=== PATIENT | male | born 1950 | race Caucasian/White ===

== ENCOUNTER 2017-02-24 13:39 | Inpatient (IN) | payer MEDICARE ==
[2017-02-24] VITALS (7 sets, daily range): BP systolic 128–165; BP diastolic 75–86; PULSE 50–55; RESP 15–20; O2SAT 95–97
[~2017-02-24] VITALS: Ht 179.1 cm; Wt 112.8 kg
[~2017-02-24 13:39] MED LIST: ASPI-973 PO; ATEN25TA PO; FELO5TAB4 PO; FLUO20CA25 PO; FLUT16SP NS; KLO5T PO; LOVA40TA PO; METF-496 PO; TAMS0.4C29 PO
--- NOTE | 2017-02-24 13:53 | ED.REPORT ---
HPI-Neurologic Deficit Date of Service Feb 24, 2017 ED Provider: Laura Ballard MD Patient is a 66 year old male with a history of diabetes, aortic root aneurysm, hypertension, and multiple other concerns presenting to the ED complaining of numbness in his left arm radiating to his left shoulder and hand onset 12:00 today. The patient admits to having weakness in his left arm and hand, a "fuzzy feeling" on the left side of his face, difficulty talking, feeling mentally "hazy" and a headache. He denies having leg or face numbness, trouble walking, vision problems, dizziness, nausea, chest pain or abdominal pain. The patient reports that the weakness in his arm is improving and he no longer has a headache or a "hazy" feeling. The patient took three regular aspirin for his symptoms prior to arrival, which seemed to help. Per the patient's , the patient has experienced numbness in his arm similar to this six years ago, but the symptoms were not as severe. However he has not yet fully regained sensation in his left arm from that event. Nursing Notes Stated Complaint: LEFT ARM NUMB,HEADACHE Chief Complaint: Neuro Symptoms/ Deficits Nursing Notes Reviewed: Yes Allergies: Coded Allergies: ARB-Angiotensin Receptor Antagonist (Verified Allergy, Severe, Anaphylaxis , 02/24/17) hydrochlorothiazide (Verified Allergy, Severe, Anaphylaxis, 02/24/17) losartan (Verified Allergy, Severe, LARYNGEAL SWELLING, 02/24/17) lisinopril (Verified Allergy, Intermediate, myalgia, 02/24/17) simvastatin (Verified Adverse Reaction, Intermediate, myalgias, 02/24/17) Scheduled Aspirin (Aspirin) 81 Mg Tablet 81 MG PO DAILY Atenolol (Atenolol) 25 Mg Tablet 25 MG PO QPM Felodipine ER (Felodipine ER) 5 Mg Tab.er.24h 5 MG PO QAM Fluoxetine (Fluoxetine) 20 Mg Capsule 20 MG PO DAILY Fluticasone Propionate (Fluticasone Propionate Nasal) 16 Gm [place].susp 1 SPRAY NS DAILY Lovastatin (Lovastatin) 40 Mg Tablet 40 MG PO HS Metformin ER (Metformin ER) 1,000 Mg Tablet 1,000 MG PO BID morning and evening meals Tamsulosin ER (Tamsulosin ER) 0.4 Mg Cap.er.24h 0.4 MG PO DAILY Terbinafine (Terbinafine) 250 Mg Tablet 250 MG PO DAILY Scheduled PRN Clonazepam (Clonazepam) 0.5 Mg Tablet 0.5 MG PO BID PRN PRN For Anxiety Lorazepam (Lorazepam) 1 Mg Tablet 1 MG PO TID PRN PRN For Anxiety General Time Seen by Provider: 13:42 Chief Complaint Weakness arm... (Left) Hx Obtained From: Patient, Spouse Arrived By: Walk-in Sudden in Onset?: Yes Onset Occurred: 1 - 4 hours ago Symptom Duration: Since onset Progression Since Onset: Gradually improving Recent Healthcare: No recent hospitalization, Recent doctor visit Similar Sx Previous: Yes Past Medical History Past Medical History Notes: PCP: Dr. Munoz Past Medical History Sleep apnea ENT problems sinus problems cardiac symptoms hypertension gastrointestinal disorders endocrine disorders anxiety Reports: Diabetes mellitus, Hypertension, Stroke Reports: Depression Past Surgical History UVULA Reports: Appendectomy Smoking History Never Smoker Social History Alcohol Use: Denies alcohol use Drug Use: Denies drug use Ambulatory Status Independent Review of Systems Review of Systems Note: "fuzzy feeling" on left side of face feels "hazy" mentally denies issues walking Eyes: Denies: Visual loss left, Visual loss right Respiratory: Denies: Non-productive cough, Shortness of breath Cardiovascular: Denies: Chest pain GI: Denies: Abdominal pain, Nausea Musculoskeletal: Denies: Back pain Skin: Denies Rash Neurologic: Reports: Headache, Numbness (left arm, shoulder and hand), Weakness (left arm), Denies: Dizziness, Problem walking, Vision change Complete sys rev & neg: except as marked. Physical Exam Initial Vital Signs Vital Signs (First) Date Time Temp Pulse Resp B/P Pulse Ox O2 Delivery O2 Flow Rate FiO2 02/24/17 13:58 36.9 55 18 146/75 97 Room Air Initial VS: Reviewed, Vital signs abnormal General/Constitutional: Awake, Alert, No acute distress Head / Eyes: Atraumatic, Normocephalic, PERRL, EOMI Respiratory / Chest: Atraumatic, Breath sounds NL, Breath sounds = bilat, No respiratory distress Cardiovascular: Heart rate NL, Regular rhythm, Heart sounds NL no carotid bruit Neurologic: Oriented X3, Speech NL, No motor deficits, No sensory deficits, CN II - XII intact Slightly decreased sensation to light touch on left side ENT: Atraumatic, Airway patent, Mucous membranes moist Neck: Atraumatic, Supple, Full range of motion Abdomen: Atraumatic, Soft, Non-tender Back: Atraumatic, Full range of motion Upper Extremity / MS: Atraumatic, Full range of motion Lower Extremity / Pelvis / MS: Atraumatic, Full range of motion Skin: Atraumatic, Color NL, No rash, Warm, Dry Psychiatric: Affect NL, Mood NL Interpretation & Diagnostics Interpretation & Diagnostics: Head/Neck CTA with Brain Perfusion: IMPRESSION: 1. No hemodynamically significant lesions of the central intracranial vasculature. 2. No hemodynamically significant lesions of the extracranial neck vasculature. Dictated by: Umesh Anand M.D. on 02/24/2017 at 15:48 Approved by: Umesh Anand M.D. on 02/24/2017 at 15:59 Lab Results Interpretation Result Diagram: 02/24/17 1410 02/24/17 1410 Test 02/24/17 14:10 02/24/17 14:15 White Blood Count 7.3th/mm3 (3.8-10.1) Red Blood Count 4.29mil/mm3 (4.40-5.80) Hemoglobin 14.1g/dL (13.8-17.2) Hematocrit 41.4% (41.0-50.0) Mean Corpuscular Volume 96.5fL (81-100) Mean Corpuscular Hemoglobin 32.9pg (27.0-35.0) Mean Corpuscular Hemoglobin Concent 34.1% (32.0-37.0) Red Cell Distribution Width 13.3% (12.3-15.4) Platelet Count 306bil/L (150-400) Neutrophils (%) (Auto) 66.7% (40-74) Lymphocytes (%) (Auto) 21.3% (14-46) Monocytes (%) (Auto) 9.2% (4-12) Eosinophils (%) (Auto) 1.5% (0-5) Basophils (%) (Auto) 0.5% (0-3) Prothrombin Time 10.3sec (8.1-12.5) Prothromb Time International Ratio 0.96ratio Activated Partial Thromboplast Time 25.7sec (22.8-33.0) Sodium Level 140mEq/L (134-144) Potassium Level 4.2mEq/L (3.5-5.2) Chloride Level 101mEq/L (97-108) Carbon Dioxide Level 21mmol/L (18-29) Blood Urea Nitrogen 17mg/dL (8-27) Creatinine 1.15mg/dL (0.76-1.27) Estimat Glomerular Filtration Rate 68mL/min (>59) Glucose Level 126mg/dL (60-99) Calcium Level 9.6mg/dL (8.5-10.1) Total Bilirubin 0.3mg/dL (0.0-1.2) Aspartate Amino Transf (AST/SGOT) 14U/L (0-50) Alanine Aminotransferase (ALT/SGPT) 13U/L (0-44) Alkaline Phosphatase 74U/L (25-160) Troponin T < 0.010ug/L (0.0-0.011) Total Protein 6.6g/dL (6.4-8.4) Albumin 4.0g/dL (3.4-5.0) Hold [place] Top Tube Received (Received) Urine Color Yellow (YELLOW) Urine Appearance Clear (CLEAR,HAZY) Urine pH 5.0 (5.0-8.0) Urine Specific [place] 1.025 (1.003-1.035) Urine Protein Negativemg/dL (NEG,TRACE) Urine Glucose (UA) Negativemg/dL (NEGATIVE) Urine Ketones Negativemg/dL (NEGATIVE) Urine Occult Blood Negative (NEGATIVE) Urine Nitrite Negative (NEGATIVE) Urine Bilirubin Negative (NEGATIVE) Urine Urobilinogen Normalmg/dL (NORMAL) Urine Leukocyte Esterase Negative (NEGATIVE) Urine RBC 0-2/hpf (0-2) Urine WBC 0-5/hpf (0-5) Urine Epithelial Cells Moderate/hpf (NONE-MOD) Urine Crystals None seen (NONE SEEN) Urine Bacteria None/hpf (NONE-FEW) Urine Hyaline Casts None/lpf (NONE) Urine Granular Casts None seen (NONE SEEN) Urine Waxy Casts None seen (NONE SEEN) Urine Red Blood Cell Casts None seen (NONE SEEN) Urine White Blood Cell Casts None seen (NONE SEEN) Urine Mucus None seen (None Seen) Urine Trichomonas None seen (NONE SEEN) Urine Yeast None (NONE SEEN) Urinalysis Comment None Urine Culture Reflexed Not indicated ECG Interpretation Interpreted by: ED physician Normal ECG Interpretation: Normal rate (53), Normal sinus rhythm CT Head Interpretation IMPRESSION: 1. No acute intracranial abnormalities. Several nonacute bilateral cerebellar hemisphere lacunar infarcts. 2. New patchy asymmetric left mastoid air cell fluid may suggest mastoiditis. Right greater than left dependent maxillary sinus mucosal thickening is also present. Dictated by: Umesh Anand M.D. on 02/24/2017 at 14:08 Approved by: Umesh Anand M.D. on 02/24/2017 at 14:12 Interpretation / Wet Read by: Interpret - Radiologist Re-Eval/Medical Decision Med Decision/Clinical Course The patient presents with neurologic symptoms were resolving upon arrival. His evaluation here did not reveal any abnormalities and the patient had complete resolution of his symptoms. He did have a neurologic evaluation more than 6 years ago and is only on a baby aspirin. Source of Hx: Old records Re-Evaluation/Progress #1: Time of Eval: 13:55 Patient Status: Condition improved Re-Evaluation/Progress Note: Rechecked patient who appears to have improved. The patient states that his arm weakness is almost resolved. More information was obtained. Re-Evaluation/Progress #2: Time of Eval: 16:19 Patient Status: Condition improved Re-Evaluation/Progress Note: Rechecked patient who appears to have improved. Discussed plan for admission. The patient understands and agrees to the plan. All questions were addressed. Consultation : Referral / Consult Name: Misael Smith Consulted With: Hospitalist Call Returned at: 16:55 Hair Dryer: Agrees with eval, Agrees with plan, Accepts admit Note: Consulted with hospitalist, Dr. Smith about the patient's case who agrees with the diagnosis and agrees to admit the patient. Counseled Regarding: Diagnosis, Lab results, Need for admission Discharge & Departure Impression: Primary Impression: Brain TIA Transient cerebral ischemia type: unspecified Qualified Code: G45.9 - Transient cerebral ischemic attack, unspecified Disposition: ADMITTED TO HOSPITAL Discharge Condition All VS Reviewed: Yes Condition: Stable Referrals: Marcial Crandall MD (PCP) Scribe Attestation Portions of this note were transcribed by Kamala Starks and [place]. I, Dr. Ballard personally performed the history, physical exam and medical decision- making; I reviewed and confirmed the accuracy of the information in the transcribed note. Signed by: Kamala Starks and ChelIra Villegas, 02/24/17 and 1717. copies to: Marcial Crandall MD, Jena M MD Feb 24, 2017 13:53 Ammy Starks Feb 24, 2017 15:21 [place] Feb 24, 2017 16:16 Laura Ballard MD Feb 24, 2017 13:53 Ammy Starks Feb 24, 2017 15:21 [place] Feb 24, 2017 16:16
--- NOTE | 2017-02-24 14:13 | DRSVH ---
PROCEDURE: CT BRAIN WITHOUT CONTRAST ([id number]) INDICATIONS: 66-year-old male with left arm numbness and headaches. TECHNIQUE: Noncontrast 4.5 mm thick angled axial sections acquired from the foramen magnum to the vertex, with c oronal reformats. COMPARISON: [facility] , CT, BRAIN W/O CONTRAST, 02/11/2011, 12:19. FINDINGS: Image quality: Excellent. CSF spaces: Basal cisterns are patent. No extra-axial fluid collections. Ventricles are normal in size and shape. Brain: No midline shift. No intracranial masses or hemorrhage. Blackwell-white matter interface is norm al. Several nonacute bilateral cerebellar hemisphere lacunar infarcts are again noted. There is pat margo intracranial internal carotid artery atherosclerosis. Skull and face: Calvarium and visualized facial bones are intact, without suspicious lesions. Sinuses: There is bibasilar maxillary sinus mucosal thickening, as well as new patchy asymmetric lef t mastoid air cell fluid. IMPRESSION: 1. No acute intracranial abnormalities. Several nonacute bilateral cerebellar hemisphere lacunar in farcts. 2. New patchy asymmetric left mastoid air cell fluid may suggest mastoiditis. Right greater than le ft dependent maxillary sinus mucosal thickening is also present. Dictated by: Umesh Anand M.D. on 02/24/2017 at 14:08 Approved by: Umesh Anand M.D. on 02/24/2017 at 14:12
[2017-02-24] MEDS ORDERED: LORA1TAB PO (14:28)
[2017-02-24] MEDS ORDERED: TERB250T11 PO (14:28)
[2017-02-24 14:32] LABS: BASOPHILS % (AUTO) 0.5 % (0-3); EOSINOPHILS % (AUTO) 1.5 % (0-5); MONOCYTES % (AUTO) 9.2 % (4-12); Mean Corpuscular Hemoglobin 32.9 pg (27.0-35.0); Mean Corpuscular Volume 96.5 fL (81-100); NEUTROPHILS % (AUTO) 66.7 % (40-74); Platelet Count 306 bil/L (150-400)
[2017-02-24 14:33] LABS: APPEARANCE,URINE CLEAR (CLEAR,HAZY); COLOR,URINE YELLOW (YELLOW); OCCULT BLOOD,URINE NEGATIVE (NEGATIVE); UROBILINOGEN,URINE NORMAL (NORMAL)
[2017-02-24 14:50] LABS: INR 0.96 ratio
[2017-02-24 14:56] LABS: TROPONIN T < 0.010 ug/L (0.0-0.011)
--- NOTE | 2017-02-24 15:10 | NUR ---
Evaluation completed. Please go to "Notes" then click on "Assessments and Notes" (bottom left corner of screen). Then select appropriate discipline tab on top of screen.
--- NOTE | 2017-02-24 16:00 | DRSVH ---
PROCEDURE: CT ANGIO HEAD AND NECK (P) INDICATIONS: 66-year-old male with left arm and facial numbness. TECHNIQUE: After the administration of intravenous contrast, 1 mm thick sections acquired from the aortic arch t hrough the [place]. Post-contrast 4.5 mm thick sections then re-acquired from the foramen m agnum to the vertex. 3-dimensional qjngulb-eydasyeij-yeajconidj (MIP) and/or volume rendering reform ats were acquired of the central intracranial vasculature and neck separately. For radiation dose re duction, the following was used: automated exposure control, adjustment of mA and/or kV according to patient size. COMPARISON: [facility], CT, CT BRAIN WO CON, 02/24/2017, 14:03. FINDINGS: Image quality: Excellent. BRAIN: CSF spaces: Ventricles are normal in size and shape. Basal cisterns are patent. No extra-axial flu id collections. Brain: No midline shift. No intracranial bleeds or masses. Blackwell-white matter interface appears int act. Skull and face: Calvarium and facial bones appear intact, without suspicious lesions. Orbits appear normal. Sinuses: Sinuses and mastoids are clear. HEAD CT ANGIOGRAPHY: Anterior circulation: Intracranial internal carotid arteries are normal in size and flow. 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 The flow within the middle cerebral arteries is normal and symmetric. The anterior communic ating artery is seen. No aneurysms are seen. Posterior circulation: Visualized portions of the vertebral arteries demonstrate normal caliber, and join to form a normal appearing basilar artery. Flow within the posterior cerebral arteries is norm al and symmetric. No aneurysms are seen. NECK CT ANGIOGRAPHY: Carotid system: There is a bovine aortic arch, with common origin to the brachiocephalic and left co mmon carotid arteries. The origins of the common carotid arteries appear patent. The common carotid arteries demonstrate normal caliber and courses. The bifurcation regions are both widely patent. M inimal bilateral proximal internal carotid artery calcification is present. The internal carotid art eries demonstrate normal calibers and courses. Posterior circulation: The origins of the codominant vertebral arteries both appear widely patent. The more superior extracranial portions of both vertebral arteries also demonstrate normal courses an d calibers. They join to form a normal appearing basilar artery. Soft tissues: Visualized neck soft tissues demonstrate no suspicious abnormalities. Bones: No suspicious bony lesions. Visualized cervical spine appears normally aligned. IMPRESSION: 1. No hemodynamically significant lesions of the central intracranial vasculature. 2. No hemodynamically significant lesions of the extracranial neck vasculature. Dictated by: Umesh Anand M.D. on 02/24/2017 at 15:48 Approved by: Umesh Anand M.D. on 02/24/2017 at 15:59
[2017-02-24] MEDS ORDERED: 0.9% Sodium Chloride 1,000 ML IV SCH (17:00)
[2017-02-24] MEDS ORDERED: Alum-Mag Hydrox-Simeth 30 mL Suspension PO PRN ×2 (17:00→18:15)
[2017-02-24] MEDS ORDERED: Ondansetron 2 mg/mL 2 mL Inj IVPUSH PRN (17:00)
--- NOTE | 2017-02-24 18:05 | NUR ---
Admit MPC from ED A&O pt arrived to [facility] rm [id number] from ED on a stretcher. Pt c/o PETERSON being 12/05. Miguel at bedside. Pt oriented to room and facility. Denies having questions. Admit to be done. MD in room at the moment. Pt appears to be very [place]. Steady gait observed when ambulating to the restroom. Upper rails up, call light in reach. Will continue to monitor.
[2017-02-24] MEDS ORDERED: Polyethylene Glycol (PEG) 17 Gm Powder PO PRN (18:15)
[2017-02-24] MEDS ORDERED: Labetalol 5 mg/mL 4 mL Inj IVPUSH PRN (18:15)
[2017-02-24] MEDS ORDERED: Ondansetron 2 mg/mL 2 mL Inj IV PRN (18:15)
--- NOTE | 2017-02-24 18:28 | PCM.HPMED ---
Subjective Date of Service Feb 24, 2017 Primary Provider: Admitting Physician: Misael Smith Primary Care Physician: Marcial Crandall MD Attending Physician: Misael Smith Chief Complaint: left arm and hand numbness/weakness History of Present Illness: 66 year old male with distant history of CVA six years ago and residual left elbow numbness since then as well as history of hypertension and diabetes presents with acute episode of left upper extremity numbness (affecting the left hand to left shoulder) as well as some "clumsiness" and weakness of his left hand that began around noon time today as he was watching TV. He note that after waiting for about 15 minutes and not noticing any resolution he took 3 baby aspirins and after about 30 minutes had almost complete resolution of the new numbness and significant improvement in the left hand weakness/ clumsiness although not completely resolved yet. He also reports an associated frontal headache today that has now almost completely resolved as well. He otherwise denies any other associated symptoms such as lightheadedness, dizziness, change in vision, nausea, vomiting, fever or chills. Allergies Coded Allergies: ARB-Angiotensin Receptor Antagonist (Verified Allergy, Severe, Anaphylaxis , 02/24/17) hydrochlorothiazide (Verified Allergy, Severe, Anaphylaxis, 02/24/17) losartan (Verified Allergy, Severe, LARYNGEAL SWELLING, 02/24/17) lisinopril (Verified Allergy, Intermediate, myalgia, 02/24/17) simvastatin (Verified Adverse Reaction, Intermediate, myalgias, 02/24/17) Home Medications Terbinafine 250 Mg Tablet 250 Mg PO DAILY Autonomic Drugs Tamsulosin ER 0.4 Mg Cap.Er.24h 0.4 Mg PO DAILY Ref 0 Cardiovascular Drugs Atenolol 25 Mg Tablet 25 Mg PO QPM Ref 0 Felodipine ER 5 Mg Tab.Er.24h 5 Mg PO QAM Lovastatin 40 Mg Tablet 40 Mg PO HS #30 TABLET Ref 0 Central Nervous System Agents Aspirin 81 Mg Tablet 81 Mg PO DAILY Ref 0 Clonazepam 0.5 Mg Tablet 0.5 Mg PO BID PRN PRN For Anxiety PRN For Anxiety Fluoxetine 20 Mg Capsule 20 Mg PO DAILY Ref 0 Lorazepam 1 Mg Tablet 1 Mg PO TID PRN PRN For Anxiety PRN For Anxiety Eye, Ear, Nose And Throat (Een Fluticasone Propionate 16 Gm [place].Susp (Fluticasone Propionate Nasal) 1 [place] NS DAILY #16 GM Ref 0 Hormones And Synthetic Substit Metformin ER 1,000 Mg Tablet 1,000 Mg PO BID Ref 0 morning and evening meals Exam Vital Signs & I/O Vital Sign- Last 8 Hours Date Time Temp Pulse Resp B/P Pulse Ox O2 Delivery O2 Flow Rate FiO2 02/24/17 17:27 36.7 50 20 146/84 95 Room Air 02/24/17 16:59 36.9 55 16 128/76 95 Room Air 02/24/17 15:38 16 128/76 95 Room Air 02/24/17 14:23 55 15 165/86 97 02/24/17 13:58 36.9 55 18 146/75 97 Room Air Lab & Micro Results Laboratory Tests Test 02/24/17 14:10 02/24/17 14:15 White Blood Count 7.3th/mm3 (3.8-10.1) Red Blood Count 4.29mil/mm3 (4.40-5.80) Hemoglobin 14.1g/dL (13.8-17.2) Hematocrit 41.4% (41.0-50.0) Mean Corpuscular Volume 96.5fL (81-100) Mean Corpuscular Hemoglobin 32.9pg (27.0-35.0) Mean Corpuscular Hemoglobin Concent 34.1% (32.0-37.0) Red Cell Distribution Width 13.3% (12.3-15.4) Platelet Count 306bil/L (150-400) Neutrophils (%) (Auto) 66.7% (40-74) Lymphocytes (%) (Auto) 21.3% (14-46) Monocytes (%) (Auto) 9.2% (4-12) Eosinophils (%) (Auto) 1.5% (0-5) Basophils (%) (Auto) 0.5% (0-3) Prothrombin Time 10.3sec (8.1-12.5) Prothromb Time International Ratio 0.96ratio Activated Partial Thromboplast Time 25.7sec (22.8-33.0) Sodium Level 140mEq/L (134-144) Potassium Level 4.2mEq/L (3.5-5.2) Chloride Level 101mEq/L (97-108) Carbon Dioxide Level 21mmol/L (18-29) Blood Urea Nitrogen 17mg/dL (8-27) Creatinine 1.15mg/dL (0.76-1.27) Estimat Glomerular Filtration Rate 68mL/min (>59) Glucose Level 126mg/dL (60-99) Calcium Level 9.6mg/dL (8.5-10.1) Total Bilirubin 0.3mg/dL (0.0-1.2) Aspartate Amino Transf (AST/SGOT) 14U/L (0-50) Alanine Aminotransferase (ALT/SGPT) 13U/L (0-44) Alkaline Phosphatase 74U/L (25-160) Troponin T < 0.010ug/L (0.0-0.011) Total Protein 6.6g/dL (6.4-8.4) Albumin 4.0g/dL (3.4-5.0) Hold [place] Top Tube Received (Received) Urine Color Yellow (YELLOW) Urine Appearance Clear (CLEAR,HAZY) Urine pH 5.0 (5.0-8.0) Urine Specific [place] 1.025 (1.003-1.035) Urine Protein Negativemg/dL (NEG,TRACE) Urine Glucose (UA) Negativemg/dL (NEGATIVE) Urine Ketones Negativemg/dL (NEGATIVE) Urine Occult Blood Negative (NEGATIVE) Urine Nitrite Negative (NEGATIVE) Urine Bilirubin Negative (NEGATIVE) Urine Urobilinogen Normalmg/dL (NORMAL) Urine Leukocyte Esterase Negative (NEGATIVE) Urine RBC 0-2/hpf (0-2) Urine WBC 0-5/hpf (0-5) Urine Epithelial Cells Moderate/hpf (NONE-MOD) Urine Crystals None seen (NONE SEEN) Urine Bacteria None/hpf (NONE-FEW) Urine Hyaline Casts None/lpf (NONE) Urine Granular Casts None seen (NONE SEEN) Urine Waxy Casts None seen (NONE SEEN) Urine Red Blood Cell Casts None seen (NONE SEEN) Urine White Blood Cell Casts None seen (NONE SEEN) Urine Mucus None seen (None Seen) Urine Trichomonas None seen (NONE SEEN) Urine Yeast None (NONE SEEN) Urinalysis Comment None Urine Culture Reflexed Not indicated Result Diagram: 02/24/17 1410 02/24/17 1410 Review of Systems: Constitutional: Negative, except as otherwise mentioned in the history above. Ophthalmologic: Negative, except as otherwise mentioned in the history above. Cardiovascular: Negative, except as otherwise mentioned in the history above. Respiratory: Negative, except as otherwise mentioned in the history above. Gastrointestinal: Negative, except as otherwise mentioned in the history above. Genitourinary: Negative, except as otherwise mentioned in the history above. Musculoskeletal: Negative, except as otherwise mentioned in the history above. Neurological: Negative, except as otherwise mentioned in the history above. Psychiatric: Negative, except as otherwise mentioned in the history above. Hematologic/Lymphatic: Negative, except as otherwise mentioned in the history above. Allergic/Immunologic: Negative, except as otherwise mentioned in the history above. PMH 1. Hypertension. 2. Type 2 diabetes. 3. Obstructive sleep apnea on CPAP. 4. Obesity. 5. 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 MRI brain in January 2011 showing: "Small, acute, lacunar infarct involving the right parietal subcortical white matter. Old, small, lacunar infarcts involving the inferior aspects of the cerebellar hemispheres bilaterally." Family History denies any family history of cancer or heart disease. Social History Hx Alcohol Use: No Hx Substance Use: No Hx Tobacco Use: Yes (TID PIPE. quit 2 years ago) Exam Vital Signs Vital Sign - Last Date Time Temp Pulse Resp B/P Pulse Ox O2 Delivery O2 Flow Rate FiO2 02/24/17 17:27 36.7 50 20 146/84 95 Room Air General: Alert, Oriented X3, Cooperative, No Acute Distress Head: Normal Eyes: PERRLA, EOMI, Scleral Anicteric Nose: Mucous Membr Moist/Staves Mouth: Mucous Membr Moist/Staves Neck: Supple Chest & Lungs: Chest Wall Normal, Clear to auscultation & percussion Cardiovascular: Regular Rate/Rhythm Pulses: NL carotid, radial, femoral, DP, PT Abdomen: Non-tender, Non-distended, Normoactive bowel tones, Soft Extremities: No cyanosis/clubbing/edma bilat Neurological: Grossly Neurologically Intact, Cranial Nerves 2-12 Intact, Normal Speech, Strength Normal /4 ext (bilat), Sensation Intact (grossly. bilat ) Lab and Diagnostics Result Diagram: 02/24/17 1410 02/24/17 1410 X-Rays, CTs and MRIs Date of Service: 02/24/17 1353 PROCEDURE: CT BRAIN WITHOUT CONTRAST ([id number]) IMPRESSION: 1. No acute intracranial abnormalities. Several nonacute bilateral cerebellar hemisphere lacunar infarcts. 2. New patchy asymmetric left mastoid air cell fluid may suggest mastoiditis. Right greater than left dependent maxillary sinus mucosal thickening is also present. Dictated by: Umesh Anand M.D. on 02/24/2017 at 14:08 Approved by: Umesh Anand M.D. on 02/24/2017 at 14:12 Date of Service: 02/24/17 1403 PROCEDURE: CT ANGIO HEAD AND NECK (P) IMPRESSION: 1. No hemodynamically significant lesions of the central intracranial vasculature. 2. No hemodynamically significant lesions of the extracranial neck vasculature. Dictated by: Umesh Anand M.D. on 02/24/2017 at 15:48 Approved by: Umesh Anand M.D. on 02/24/2017 at 15:59 12-lead ECG NSR. no significant ST elevation/depression Assessment & Plan 66 year old male with distant history of CVA six years ago and residual left elbow numbness since then as well as history of hypertension and diabetes presents with acute episode of left upper extremity numbness (affecting the left hand to left shoulder) as well as some "clumsiness" and weakness of his left hand # Acute left upper extremity numbness/weakness. present on admission. improving - possible TIA vs acute ischemic stroke - MRI/MRA brain - check Echo - f/u on Tele - check fasting lipid. he seems to be allergic to statins so will hold off - start Plavix given had symptoms while on ASA at home - permissive hypertension for now - PT/OT eval # Hypertension. stable - permissive hypertension for now as noted above - prn Labetalol per protocol # Type 2 diabetes. - hold home metformin - cover with ISS - check HgA1C # Obstructive sleep apnea - CPAP at home setting Expected length of hospital stay at this time is less than 2 midnights and likely home tomorrow if workup noted above negative and symptoms resolve. GI Prophylaxis: Proton Pump Inhibitor VTE Prophylaxis: Sub-Q Heparin (Unfractionated) VTE Mechanical Devices: Venous Foot Pump Resuscitation Status: CPR: Attempt Resuscitation (discussed and verified with [facility] patient) Time spent 60 min Misael Smith Feb 24, 2017 18:28
--- NOTE | 2017-02-24 20:27 | NUR ---
SONG explained and signed. Copy of SONG given to pt
[2017-02-24] MEDS: Insulin Human REGular 300 Unit/3 mL Inj SUBQ SCH (22:00)
[2017-02-25] VITALS (8 sets, daily range): BP systolic 146–158; BP diastolic 48–89; PULSE 48–58; RESP 16–20; O2SAT 93–96
[2017-02-25] MEDS: Heparin 5,000 Unit/mL Inj SUBQ SCH ×3 (00:49→16:51)
[2017-02-25] MEDS: Insulin Human REGular 300 Unit/3 mL Inj SUBQ SCH ×4 (07:30→20:51)
[2017-02-25] MEDS: Fluticasone 0.05% 15 Spray/2 Gm 16 Gm Nasal Spray NASAL SCH (07:55)
--- NOTE | 2017-02-25 09:49 | NUR ---
off floor pt is transported to MRI via W/C.
--- NOTE | 2017-02-25 10:41 | DRSVH ---
PROCEDURE: MRI BRAIN WITHOUT CONTRAST ([id number]) INDICATIONS: left arm numbness/weakness TECHNIQUE: Noncontrast axial T1 spin echo, axial T2 fast spin echo, sagittal and axial FLAIR, coronal T2 fast sp in echo, axial gradient echo, axial diffusion and ADC through the brain. COMPARISON: [facility], CT, CT ANGIO BRAIN AND NECK, 02/24/2017, 15:16. [facility], CT, CT BRAIN WO CON, 02/24/2017, 14:03. FINDINGS: Image quality: Excellent. CSF Spaces: Basal cisterns are patent. No extra-axial fluid collections. There is mild cerebral vo lume loss with prominence of the ventricles and sulci. Brain: Diffusion-weighted images demonstrate a punctate cortical focus of restricted diffusion in th e right frontal lobe along the precentral gyrus. There is corresponding mild T2 hyperintensity. No evidence of hemorrhagic conversion. Findings are consistent with a punctate late acute to early suba cute infarct. No intracranial hemorrhage, mass, or mass effect. Blackwell/white matter interface is pres erved. Brainstem appears normal. Normal intravascular flow voids are present. Skull and face: Calvarium has normal marrow signal. Orbits appear normal. Sinuses: There is partial fluid opacification of the left mastoid air cells compatible with mastoidit is. Mild mucosal thickening is present within the bilateral ethmoid, maxillary, and sphenoid sinuses . IMPRESSION: 1. Punctate cortical focus of restricted diffusion consistent with a late acute to early subacute in farct. No evidence of hemorrhagic conversion. 2. Mild cerebral volume loss. 3. Left mastoiditis and sinus mucosal disease within the ethmoid, maxillary, and sphenoid sinuses. Dictated by: Joe Vila M.D. on 02/25/2017 at 10:39 Approved by: Joe Vila M.D. on 02/25/2017 at 10:39
--- NOTE | 2017-02-25 11:39 | NUR ---
Social Work: Initial Assessment: Data & assessment: See Initial Assessment. EMR Reviewed. Patient is a 66 y/o male who admitted with TIA per H&P. Patient's re-admit score is 1-no risk. SW met with patient at bedside to complete initial assessment, SW role reviewed and discharge planning discussed. Patient confirmed that his PCP is Dr. Marcial Crandall and his insurance is [facility]. Patient also confirmed that his NOK is his , Fide Young [phone]. patient reported that he does not have an Advance Directive/DPOA and declined the information. Patient lives in a two story home with three steps to enter and fourteen on the inside. Patient is independent at baseline and does drive. patient does not have any DME, no HH history and no SNF history. Patient doesnot have any LTC or VA benefits. Patient has no discharge needs identified at this time. SW to continue to follow if any needs arise. Plan: Anticipated discharge home via POV when medically ready. No discharge needs identified at this time. SW to continue to follow if any needs arise. Tara Sharma LMSW,BREONNA Addendum: 02/25/17 at 1151 by TARA DIAZ Amended: Links added.
--- NOTE | 2017-02-25 12:07 | NUR ---
Evaluation completed. Please go to "Notes" then click on "Assessments and Notes" (bottom left corner of screen). Then select appropriate discipline tab on top of screen.
--- NOTE | 2017-02-25 12:52 | NUR ---
[facility] signed
--- NOTE | 2017-02-25 13:42 | DRSVH ---
[facility] [address] [place] [address] Echocardiogram Report Name: ESE DOMINGUEZ FStudy Date: 02/25/2017 Height: 71 in Hospital Exam Location: [facility] Weight: 250 lb Gender: Male BSA: 2.3 m2 : 1950 Age: 66 yrs BP: 151/69 mmHg Reason For Study: TIA Ordering Physician: HOSPITALIST SVHPerformed By: Nathan Burks Referring Physician: Ally Crandall Interpretation Summary 1. The left ventricle is mildly dilated with upper limits of normal wall thickness and normal systolic function with an estimated EF of 50-55% 2. Normal right ventricular size and systolic function. 3. Mild aortic insufficiency 4. Dilated ascending aorta (stable in size compared to the previous study in 2016) Compared to the previous study, the left ventricle appears slightly more dilated; systolic function is stable. The left atrium is also more dilated. Procedure: A two-dimensional transthoracic echocardiogram with color flow and Doppler was performed. The study quality was technically adequate. Comparison is made with the echocardiogram of 09/29/16. The patient was in normal sinus rhythm during the exam. Left Ventricle: The left ventricle is mildly dilated. Left ventricular wall thickness is at the upper limits of normal. The ejection fraction is estimated to be 50-55%. Septal motion is consistent with conduction abnormality. Right Ventricle: The right ventricle is normal in size and function. Atria: The left atrium is severely dilated. Right atrial size is normal. No color doppler evidence for an ASD. Mitral Valve: The mitral valve is normal in structure and function. There is trace mitral regurgitation. Aortic Valve: The aortic valve is trileaflet. The aortic valve opens well. There is mild aortic regurgitation. Tricuspid Valve: The tricuspid valve is normal in structure and function. There is mild tricuspid regurgitation. The right ventricular systolic pressure is estimated at 24 mmHg assuming a right atrial pressure of 3 mm Hg. Pulmonic Valve: The pulmonic valve is normal in structure and function. There is trace pulmonic regurgitation. Great Vessels: The aortic root is normal size. The ascending aorta is moderately enlarged. This is unchanged compared to the previous study. The diameter of the ascending aorta is 4.3 cm. The IVC is of normal diameter and collapses greater than 50% with a sniff. This suggests a low right atrial pressure of 3 mm Hg. Pericardium/ Pleura There is no pericardial effusion. There is no pleural effusion. MMode/2D Measurements & Calculations LVIDd: 6.3 cm LA dimension: 4.4 cm RA long axis: 5.0 cm LVOT diam LVIDs: 3.8 cm FS: 40.2 % LA A2 area: 31.6 cm RA area: 20.8 cm Ao root diam EPSS: 0.94 cm LA A4 area: 30.0 cm RA vol: 73.1 ml IVSd: 1.1 cm LA length (vol): 6.8 cm RA : 31.5 ml/m2 Aortic Jxn LVPWd: 1.1 cm LA vol: 119.1 ml asc Aorta LA vol index: 51.4 ml/m Diam: 4.3 cm IVC diam: 1.9 cm EDV(MOD-sp2) LV smart. diameter/BSA LV sys. diameter/BSA : 106.3 ml (cm/m^2): 2.7 (cm/m^2): 1.6 Doppler Measurements & Calculations Ao V2 max MV E max juan MV E/A: 0.77 TR max juan : 154.6 cm/sec : 60.5 cm/sec Med Peak E' Juan : 229.4 cm/sec Ao max PG MV A max juan TR max P.1 mmHg : 9.6 mmHg : 78.4 cm/sec E/E' med: 15.8 PA V2 max: 95.8 cm/sec Ao mean PG Pulm A Revs Dur PA mean P.2 mmHg : 5.9 mmHg PA Accel Time: 0.14 sec MV A dur: 0.12 sec MV dec time Ao V2 mean PA V2 mean Pulm A Revs Dur - MV A : 0.19 sec : 115.8 cm/sec : 72.2 cm/sec Dur: -0.03 msec Ao V2 VTI PA pr(Accel) : 34.7 cm : 21.6 mmHg Reading Physician:01:[id number] PM
--- NOTE | 2017-02-25 14:15 | PCM.PNMED ---
Subjective Date of Service Feb 25, 2017 Subjective denies any new issues/complaints. does report significant improvement in his presenting symptoms but still having some difficulty with his left hand movement and coordination. Exam Vital Signs Vital Sign - Last Date Time Temp Pulse Resp B/P Pulse Ox O2 Delivery O2 Flow Rate FiO2 02/25/17 13:40 37.2 55 18 146/80 96 Room Air Intake and Output 02/24/17 02/24/17 02/25/17 Cumulative From/Thru 15:00 23:00 07:00 02/24/17 13:58 - 02/25/17 06:40 Intake Total 681 ml 1000 ml 1681 ml Output Total 125 ml 575 ml 700 ml Balance 556 ml 425 ml 981 ml Intake Oral 681 ml 681 ml IV Total 1000 ml 1000 ml Output Urine Total 125 ml 575 ml 700 ml # Voids 1 1 # Bowel Movements 0 0 Exam General: Alert, Cooperative, No Acute Distress Head: Normal Eyes: PERRLA, EOMI, Scleral Anicteric Nose: Mucous Membr Moist/[place] Mouth: Mucous Membr Moist/[place] Neck: Supple Chest & Lungs: Chest Wall Normal, Clear to auscultation bilat Cardiovascular: Regular Rate/Rhythm Pulses: NL carotid, radial, femoral, DP, PT Abdomen: Non-tender, Non-distended, Normoactive bowel tones, Soft Extremities: No cyanosis/clubbing/edema bilat Neurological: Grossly Neurologically Intact, Cranial Nerves 2-12 Intact, Normal Speech IVs and Medications Medications Reviewed: Medications were reviewed in detail Lab and Diagnostics Result Diagram: 02/24/17 1410 02/24/17 1410 X-Rays, CTs and MRIs Date of Service: 02/24/17 1353 PROCEDURE: CT BRAIN WITHOUT CONTRAST ([id number]) IMPRESSION: 1. No acute intracranial abnormalities. Several nonacute bilateral cerebellar hemisphere lacunar infarcts. 2. New patchy asymmetric left mastoid air cell fluid may suggest mastoiditis. Right greater than left dependent maxillary sinus mucosal thickening is also present. Dictated by: Umesh nAand M.D. on 02/24/2017 at 14:08 Approved by: Umesh Anand M.D. on 02/24/2017 at 14:12 Date of Service: 02/24/17 1403 PROCEDURE: CT ANGIO HEAD AND NECK (P) IMPRESSION: 1. No hemodynamically significant lesions of the central intracranial vasculature. 2. No hemodynamically significant lesions of the extracranial neck vasculature. Dictated by: Umesh Anand M.D. on 02/24/2017 at 15:48 Approved by: Umesh Anand M.D. on 02/24/2017 at 15:59 Date of Service: 02/25/17 0800 PROCEDURE: MRI BRAIN WITHOUT CONTRAST ([id number]) IMPRESSION: 1. Punctate cortical focus of restricted diffusion consistent with a late acute to early subacute infarct. No evidence of hemorrhagic conversion. 2. Mild cerebral volume loss. 3. Left mastoiditis and sinus mucosal disease within the ethmoid, maxillary, and sphenoid sinuses. Dictated by: Joe Vila M.D. on 02/25/2017 at 10:39 Approved by: Joe Vila M.D. on 02/25/2017 at 10:39 12-lead ECG NSR. no significant ST elevation/depression Assessment & Plan 66 year old male with distant history of CVA six years ago and residual left elbow numbness since then as well as history of hypertension and diabetes presents with acute episode of left upper extremity numbness (affecting the left hand to left shoulder) as well as some "clumsiness" and weakness of his left hand # Acute left upper extremity numbness/weakness. present on admission. improving - MRI 02/25/17 showing: "Punctate cortical focus of restricted diffusion consistent with a late acute to early subacute infarct" but clinical presentation is more suggestive of acute CVA/infarct - f/u pending echo - f/u on Tele - check fasting lipid. - It is not fully clear to me if this will constitute an Aspirin "failure" because patient admits today that he had not been strict on taking an ASA daily and that he was missing doses every now and then. I will continue with Plavix for now but will strongly recommend and official neurology consult in am (not available today) for further recommendation in optimizing his medical management and possible further workup given based on imaging and history he seems to have had recurrent episodes of infarct in the same area of the brain over the past several years. - c/w permissive hypertension for now - f/u pending PT/OT eval # Hypertension. stable - permissive hypertension for now as noted above - prn Labetalol per protocol # Type 2 diabetes. - hold home metformin - cover with ISS - f/u pending HgA1C # Obstructive sleep apnea - CPAP at home setting patient's hospital status has been changed to inpatient today given clinical and imaging evidence of acute stroke and need for further workup, treatment, and consult at this time. GI Prophylaxis: Proton Pump Inhibitor VTE Prophylaxis: Sub-Q Heparin (Unfractionated) VTE Mechanical Devices: Venous Foot Pump Resuscitation Status: CPR: Attempt Resuscitation (discussed and verified with [facility] patient) Time spent 35 min Misael Smith Feb 25, 2017 14:15
[2017-02-26] VITALS (9 sets, daily range): BP systolic 148–191; BP diastolic 73–111; PULSE 50–95; RESP 16–20; O2SAT 93–97
[2017-02-26] MEDS: Heparin 5,000 Unit/mL Inj SUBQ SCH ×4 (00:08→23:47)
--- NOTE | 2017-02-26 06:30 | NUR ---
Uneventful Night pt has been able to sleep during the night. no complaints of pain. neuro assessments have been unchanged, reports left arm numbness has been unchanged. VSS, afebrile, on RA. very [place]. using call light to make needs known, placed within reach.
[2017-02-26 06:37] LABS: Mean Corpuscular Hemoglobin 32.3 pg (27.0-35.0); Mean Corpuscular Volume 96.8 fL (81-100)
[2017-02-26] MEDS: Insulin Human REGular 300 Unit/3 mL Inj SUBQ SCH ×4 (07:30→21:33)
[2017-02-26] MEDS: Fluticasone 0.05% 15 Spray/2 Gm 16 Gm Nasal Spray NASAL SCH ×2 (08:26→21:29)
[2017-02-26] MEDS ORDERED: Sodium Chloride NAS 45 mL Spray NASAL PRN (09:20)
--- NOTE | 2017-02-26 15:33 | NUR ---
Social Work - Readiness for Discharge Data: EMR reviewed. Pt is on day 2 of hospitalization for TIA. Anticipate pt to be ready for discharge tomorrow per morning rounds. PT and ST have both seen pt and cleared pt for home, no needs. Pt's to provide transport at discharge. No needs anticipated at this time. SW will continue to follow if needs arise. Assessment: Pt who resides at home and is independent at baseline. Plan: Pt to discharge home via POV with no needs. SW will continue to follow if needs arise. MIGUEL Yusuf
--- NOTE | 2017-02-26 18:20 | NUR ---
Activity/shift Pt up ind in room. Denies any dizziness with change in position. States chronic LUE numbness is unchanged. Blood sugars 133-139-166 this shift. Pt denies any pain/discomfort/SOB. Currently resting comfortably in bed, call light in reach.
--- NOTE | 2017-02-26 19:24 | PCM.PNMED ---
Subjective Date of Service Feb 26, 2017 Subjective Patient denies dizziness, lightheadedness. States weakness in L arm improved. He feels he is back to his baseline. He states prior to his arrival at the ED, his whole left arm was numb, his fingers were tingling. He He denies abdominal pain, nausea/vomiting and diarrhea. He is endorsing mild headaches, resolving numbness, tingling over the Left arm.Says he is having intermittent L sided chest pain that is not currently present. He admits to being anxious. He is also endorsing sinusitis symptoms , though he denies fevers and chills. Exam Vital Signs Vital Sign - Last Date Time Temp Pulse Resp B/P Pulse Ox O2 Delivery O2 Flow Rate FiO2 02/26/17 05:08 36.5 50 16 148/88 93 Room Air Intake and Output 02/25/17 02/25/17 02/26/17 Cumulative From/Thru 15:00 23:00 07:00 02/24/17 13:58 - 02/26/17 05:08 Intake Total 200 ml 1299 ml 3180 ml Output Total 1200 ml 1650 ml 3550 ml Balance -1000 ml -351 ml -370 ml Intake Oral 200 ml 1299 ml 2180 ml IV Total 1000 ml Output Urine Total 1200 ml 1650 ml 3550 ml # Voids 1 # Bowel Movements 0 0 Exam Gen.: Neck no acute distress , hard of hearing Eyes: [place] conjunctivae. No ptosis, PERRL he Neck: No masses, trachea midline, no thyromegaly Lungs: CTA with normal respiratory effort CV: RRR, no murmurs/rubs/gallops GI: Soft, non-tender with no hepatosplenomegaly MSK: Normal gait and station, no digital cyanosis, hand stone splitter strength symmetric and equal Skin: Warm and dry. No rash, lesions or ulcers Psych: A&O X3, with approprate affect neuro: Finger to nose WNL. Babinski slight withdrawl. patellar reflexes equal and symmetric, CN II-XII grossly normal Vascular: Negative for carotid bruits MSK equal and symmetric in hands IVs and Medications Medications Reviewed: Medications were reviewed in detail Lab and Diagnostics Laboratory Tests Test 02/26/17 05:40 02/26/17 05:44 White Blood Count 6.9th/mm3 (3.8-10.1) Red Blood Count 4.39mil/mm3 (4.40-5.80) Hemoglobin 14.2g/dL (13.8-17.2) Hematocrit 42.5% (41.0-50.0) Mean Corpuscular Volume 96.8fL (81-100) Mean Corpuscular Hemoglobin 32.3pg (27.0-35.0) Mean Corpuscular Hemoglobin Concent 33.4% (32.0-37.0) Red Cell Distribution Width 13.2% (12.3-15.4) Platelet Count 274bil/L (150-400) Sodium Level 139mEq/L (134-144) Potassium Level 4.2mEq/L (3.5-5.2) Chloride Level 102mEq/L (97-108) Carbon Dioxide Level 22mmol/L (18-29) Blood Urea Nitrogen 17mg/dL (8-27) Creatinine 1.04mg/dL (0.76-1.27) Estimat Glomerular Filtration Rate 76mL/min (>59) Glucose Level 155mg/dL (60-99) Calcium Level 9.4mg/dL (8.5-10.1) Triglycerides Level 230mg/dL (0-149) Cholesterol Level 195mg/dL (100-199) LDL Cholesterol, Calculated 105.000mg/dL (0-99) VLDL Cholesterol 46.000mg/dL HDL Cholesterol 44mg/dL (>39) Cholesterol/HDL Ratio 4.43 (0.0-4.4) Troponin T < 0.010ug/L (0.0-0.011) Result Diagram: 02/24/17 1410 02/24/17 1410 X-Rays, CTs and MRIs Date of Service: 02/24/17 7423 PROCEDURE: CT BRAIN WITHOUT CONTRAST ([id number]) IMPRESSION: 1. No acute intracranial abnormalities. Several nonacute bilateral cerebellar hemisphere lacunar infarcts. 2. New patchy asymmetric left mastoid air cell fluid may suggest mastoiditis. Right greater than left dependent maxillary sinus mucosal thickening is also present. Dictated by: Umesh Anand M.D. on 02/24/2017 at 14:08 Approved by: Umesh Anand M.D. on 02/24/2017 at 14:12 Date of Service: 02/24/17 1403 PROCEDURE: CT ANGIO HEAD AND NECK (P) IMPRESSION: 1. No hemodynamically significant lesions of the central intracranial vasculature. 2. No hemodynamically significant lesions of the extracranial neck vasculature. Dictated by: Umesh Anand M.D. on 02/24/2017 at 15:48 Approved by: Umesh Anand M.D. on 02/24/2017 at 15:59 Date of Service: 02/25/17 0800 PROCEDURE: MRI BRAIN WITHOUT CONTRAST ([id number]) IMPRESSION: 1. Punctate cortical focus of restricted diffusion consistent with a late acute to early subacute infarct. No evidence of hemorrhagic conversion. 2. Mild cerebral volume loss. 3. Left mastoiditis and sinus mucosal disease within the ethmoid, maxillary, and sphenoid sinuses. Dictated by: Joe Vila M.D. on 02/25/2017 at 10:39 Approved by: Joe Vila M.D. on 02/25/2017 at 10:39 12-lead ECG NSR. no significant ST elevation/depression Assessment & Plan 66 year old male with distant history of CVA six years ago and residual left elbow numbness since then as well as history of hypertension and diabetes presents with acute episode of left upper extremity numbness (affecting the left hand to left shoulder) as well as some "clumsiness" and weakness of his left hand. MRI on 02/25/17 showed right punctate cortical focus of restricted diffusion. Now he is being treated for stroke. Acute Disgnoses: # CVA (R frontal lobe) POA -Acute left upper extremity numbness/weakness. present on admission. improving - MRI 02/25/17 showing: "Punctate cortical focus of restricted diffusion consistent with a late acute to early subacute infarct" but clinical presentation is more suggestive of acute CVA/infarct - US eCho on showed EF 50-55%, Stable dilated scending aorta, slightly mote dialted LV than before. - Telemonitoring - Fasting Lipids: Patient is currently on 10 mg Atorvastatin. -- It is not fully clear if this will constitute an Aspirin "failure" because patient admits today that he had not been strict on taking an ASA daily and that he was missing doses every now and then. Plavix is given in stead of aSA. Patient had recurrent episodes of infarct in the same area of the brain over the past several years. - c/w permissive hypertension for now - f/u pending PT/OT eval -- Consulted Dr. Ross, neurologist at [facility]. She reviewed the scans feels bad his left arm symptoms. R due to his new stroke. She recommends continuing Plavix, a DARSHAN to rule out cardio embolic etiologies as his transthoracic echo was negative. She also recommended a 4 week heart monitor. We appreciate their recommendations. Cardiology is contacted and they recommended giving a 30 day monitor to patient at discharge continue Plavix. # Hypertension. stable - permissive hypertension for now as noted above - We will start patient's home medications tomorrow a.m. # Type 2 diabetes.: - hold home metformin: Patient may restart metformin at discharge - cover with sliding scale insulin - f/u pending HgA1C # Obstructive sleep apnea - CPAP at home setting Disposition: Tomorrow GI Prophylaxis: Proton Pump Inhibitor VTE Prophylaxis: Sub-Q Heparin (Unfractionated) VTE Mechanical Devices: Venous Foot Pump Resuscitation Status: CPR: Attempt Resuscitation (discussed and verified with [facility] patient) Sherry Moreira DO Feb 26, 2017 05:14
[2017-02-26] MEDS ORDERED: hydrALAZINE 20 mg/mL Inj IVPUSH PRN (22:20)
--- NOTE | 2017-02-26 23:00 | NUR ---
IV Site IV site is red. No sign of swelling or infiltration. Site marked with marker. Will check in two hours.
--- NOTE | 2017-02-26 23:57 | NUR ---
Elevated BP Patient's BP was 191/[address] Josselin montejo. Hydralazine ordered for TIA/CVA parameters ( 220/120). Patient asymptomatic. Patient's HR running 48-52. O2 sats 90-92%. No change on IV site. Call light within reach. Care continues.
[2017-02-27 01:42] VITALS: BP 156/85; PULSE 56; RESP 18; O2SAT 98
[2017-02-27 05:18] VITALS: BP 160/86; PULSE 58; RESP 18; O2SAT 97
[2017-02-27 06:36] LABS: BASOPHILS % (AUTO) 0.4 % (0-3); EOSINOPHILS % (AUTO) 2.6 % (0-5); MONOCYTES % (AUTO) 10.7 % (4-12); Mean Corpuscular Volume 96.1 fL (81-100); NEUTROPHILS % (AUTO) 60.6 % (40-74); Platelet Count 279 bil/L (150-400)
--- NOTE | 2017-02-27 08:00 | NUR ---
Education Following up on yesterday's discussion with pt re: TIA/CVA risk factors (high blood pressure, previous CVA, male, age) formal stroke education done this AM at bedside. Pt given stroke booklet for reference. Pt states as he has experienced a CVA prior, education is familiar but he states he is glad to go over this information again so it is fresh in his mind. All questions addressed and pt reports understanding.
[2017-02-27] MEDS: Insulin Human REGular 300 Unit/3 mL Inj SUBQ SCH ×2 (08:24→11:30)
[2017-02-27] MEDS: Fluticasone 0.05% 15 Spray/2 Gm 16 Gm Nasal Spray NASAL SCH (08:26)
[2017-02-27] MEDS: Heparin 5,000 Unit/mL Inj SUBQ SCH (08:26)
[2017-02-27] MEDS ORDERED: Felodipine 5 mg ER24 Tablet PO SCH (08:30)
--- NOTE | 2017-02-27 08:34 | NUR ---
Pt. screened. No OT needs identified. DC order.
--- NOTE | 2017-02-27 09:13 | PCM.DIMED ---
Discharge Instructions Date of Service Feb 27, 2017 Dates of Hospitalization Feb 24, 2017 at 16:46 Discharge Diagnosis Discharge Diagnosis CVA, HTN, Sinusitis, Anxiety, DM II Test Results [facility] Diagnostic [place] [address] Patient Name: ESE DOMINGUEZ MR#: [id number] Location: SED Ordering Phys: Laura Ballard MD Date of Service: 02/24/17 1353 PROCEDURE: CT BRAIN WITHOUT CONTRAST ([id number]) INDICATIONS: 66-year-old male with left arm numbness and headaches. TECHNIQUE: Noncontrast 4.5 mm thick angled axial sections acquired from the foramen magnum to the vertex, with coronal reformats. COMPARISON: [facility] Imaging [place] , CT, BRAIN W/O CONTRAST, 02/11/2011, 12: 19. FINDINGS: Image quality: Excellent. CSF spaces: Basal cisterns are patent. No extra-axial fluid collections. Ventricles are normal in size and shape. Brain: No midline shift. No intracranial masses or hemorrhage. Blackwell-white matter interface is normal. Several nonacute bilateral cerebellar hemisphere lacunar infarcts are again noted. There is patchy intracranial internal carotid artery atherosclerosis. Skull and face: Calvarium and visualized facial bones are intact, without suspicious lesions. Sinuses: There is bibasilar maxillary sinus mucosal thickening, as well as new patchy asymmetric left mastoid air cell fluid. IMPRESSION: 1. No acute intracranial abnormalities. Several nonacute bilateral cerebellar hemisphere lacunar infarcts. 2. New patchy asymmetric left mastoid air cell fluid may suggest mastoiditis. Right greater than left dependent maxillary sinus mucosal thickening is also present. Dictated by: Umesh Anand M.D. on 02/24/2017 at 14:08 Approved by: Umesh Anand M.D. on 02/24/2017 at 14:12 [facility] Diagnostic [place] [address] Patient Name: ESE DOMINGUEZ MR#: [id number] Location: SED Ordering Phys: Laura Ballard MD Date of Service: 02/24/17 1403 PROCEDURE: CT ANGIO HEAD AND NECK (P) INDICATIONS: 66-year-old male with left arm and facial numbness. TECHNIQUE: After the administration of intravenous contrast, 1 mm thick sections acquired from the aortic arch through the [place]. Post-contrast 4.5 mm thick sections then re-acquired from the foramen magnum to the vertex. 3-dimensional eyzjmqa-nxrpfiqbf-hcdpximzhm (MIP) and/or volume rendering reformats were acquired of the central intracranial vasculature and neck separately. For radiation dose reduction, the following was used: automated exposure control, adjustment of mA and/or kV according to patient size. COMPARISON: [facility], CT, CT BRAIN WO CON, 02/24/2017, 14:03. FINDINGS: Image quality: Excellent. BRAIN: CSF spaces: Ventricles are normal in size and shape. Basal cisterns are patent. No extra-axial fluid collections. Brain: No midline shift. No intracranial bleeds or masses. Blackwell-white matter interface appears intact. Skull and face: Calvarium and facial bones appear intact, without suspicious lesions. Orbits appear normal. Sinuses: Sinuses and mastoids are clear. HEAD CT ANGIOGRAPHY: Anterior circulation: Intracranial internal carotid arteries are normal in size and flow. 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 The flow within the middle cerebral arteries is normal and symmetric. The anterior communicating artery is seen. No aneurysms are seen. Posterior circulation: Visualized portions of the vertebral arteries demonstrate normal caliber, and join to form a normal appearing basilar artery. Flow within the posterior cerebral arteries is normal and symmetric. No aneurysms are seen. NECK CT ANGIOGRAPHY: Carotid system: There is a bovine aortic arch, with common origin to the brachiocephalic and left common carotid arteries. The origins of the common carotid arteries appear patent. The common carotid arteries demonstrate normal caliber and courses. The bifurcation regions are both widely patent. Minimal bilateral proximal internal carotid artery calcification is present. The internal carotid arteries demonstrate normal calibers and courses. Posterior circulation: The origins of the codominant vertebral arteries both appear widely patent. The more superior extracranial portions of both vertebral arteries also demonstrate normal courses and calibers. They join to form a normal appearing basilar artery. Soft tissues: Visualized neck soft tissues demonstrate no suspicious abnormalities. Bones: No suspicious bony lesions. Visualized cervical spine appears normally aligned. IMPRESSION: 1. No hemodynamically significant lesions of the central intracranial vasculature. 2. No hemodynamically significant lesions of the extracranial neck vasculature. Dictated by: Umesh Anand M.D. on 02/24/2017 at 15:48 Approved by: Umesh Anand M.D. on 02/24/2017 at 15:59 [facility] Diagnostic [place] [address] Patient Name: ESE DOMINGUEZ MR#: [id number] [place] [facility] [place] Phys: Misael Smith MD Date of Service: 02/25/17 0800 PROCEDURE: MRI BRAIN WITHOUT CONTRAST ([id number]) INDICATIONS: left arm numbness/weakness TECHNIQUE: Noncontrast axial T1 spin echo, axial T2 fast spin echo, sagittal and axial FLAIR, coronal T2 fast spin echo, axial gradient echo, axial diffusion and ADC through the brain. COMPARISON: [facility], CT, CT ANGIO BRAIN AND NECK, 02/24/2017, 15: 16. [facility], CT, CT BRAIN WO CON, 02/24/2017, 14:03. FINDINGS: Image quality: Excellent. CSF Spaces: Basal cisterns are patent. No extra-axial fluid collections. There is mild cerebral volume loss with prominence of the ventricles and sulci. Brain: Diffusion-weighted images demonstrate a punctate cortical focus of restricted diffusion in the right frontal lobe along the precentral gyrus. There is corresponding mild T2 hyperintensity. No evidence of hemorrhagic conversion. Findings are consistent with a punctate late acute to early subacute infarct. No intracranial hemorrhage, mass, or mass effect. Blackwell/ white matter interface is preserved. Brainstem appears normal. Normal intravascular flow voids are present. Skull and face: Calvarium has normal marrow signal. Orbits appear normal. Sinuses: There is partial fluid opacification of the left mastoid air cells compatible with mastoiditis. Mild mucosal thickening is present within the bilateral ethmoid, maxillary, and sphenoid sinuses. IMPRESSION: 1. Punctate cortical focus of restricted diffusion consistent with a late acute to early subacute infarct. No evidence of hemorrhagic conversion. 2. Mild cerebral volume loss. 3. Left mastoiditis and sinus mucosal disease within the ethmoid, maxillary, and sphenoid sinuses. Dictated by: Joe Vila M.D. on 02/25/2017 at 10:39 Approved by: Joe Vila M.D. on 02/25/2017 at 10:39 Diet Heart Healthy, Diabetic Activity No restrictions Call your provider Fever or Chills, Shortness of breath, Bleeding, Chest pain, Vomitting, Excessive diarrhea, Weakness (unilateral) Patient Instructions Please take Plavix in stead of aspirin. Please wait for 3 days before restarting atenolol. Please increase your Lovastatin to 60 mg daily. PCP: Please set up patient with a 30 day heart monitor and refer to cardiology if there is a concern. Follow-up plan Please follow up with your PCP in one week. Please f/u with neurology at [facility], Dr. Ross [phone] Sherry Moreira DO Feb 27, 2017 09:13
[2017-02-27] MEDS ORDERED: CLOP75TA28 PO (09:19)
[2017-02-27] MEDS ORDERED: AGM875T PO (09:19)
[2017-02-27] MEDS ORDERED: LOVA20TA PO (09:21)
[2017-02-27 09:34] VITALS: BP 151/97; PULSE 55; RESP 18; O2SAT 96
[2017-02-27] MEDS ORDERED: Amoxicillin-Clav 875-125 mg Tablet PO SCH (09:54)
--- NOTE | 2017-02-27 10:22 | NUR ---
Social Work - Discharge Data: EMR reviewed. Pt is on day 3 of hospitalization for TIA. Pt has been medically cleared for discharge. PT and ST have both seen pt and cleared pt for home, no needs. Pt's to provide transport at discharge. No needs anticipated at this time. Assessment: Pt who resides at home and is independent at baseline. Plan: Pt to discharge home via POV with no needs. MIGUEL Yusuf
[2017-02-27 10:27] VITALS: PULSE 53
[2017-02-27 12:49] VITALS: BP 168/91; PULSE 61; RESP 18; O2SAT 97
--- NOTE | 2017-02-27 14:48 | NUR ---
DISCHARGE Pt dc'd home at 1445, amb off unit accompanied by family and [employer]. Vital signs stable, A&O, denies any pain and in no apparent distress. IV dc'd and all belongings returned. All instructions for diet, activity, medications, prescriptions, and follow up reviewed with patient who reports understanding.
--- NOTE | 2017-03-05 15:08 | PCM.DC.MED ---
Discharge Summary Date of Service Feb 27, 2017 Dates of Hospitalization Date of Hospital Admission Feb 24, 2017 at 16:46 Date of Discharge: Feb 27, 2017 Providers: Admitting Physician: Misael Smith Primary Care Physician: Marcial Crandall MD Attending Physician: Misael Smith Diagnosis at Time of Discharge Diagnosis at Time of Discharge CVA, HTN, Sinusitis, Anxiety, DM II Consultations PT/OT, Speech Therapy Procedures XRay, CTs & MRIs Date of Service: 02/24/17 1353 PROCEDURE: CT BRAIN WITHOUT CONTRAST ([id number]) IMPRESSION: 1. No acute intracranial abnormalities. Several nonacute bilateral cerebellar hemisphere lacunar infarcts. 2. New patchy asymmetric left mastoid air cell fluid may suggest mastoiditis. Right greater than left dependent maxillary sinus mucosal thickening is also present. Dictated by: Umesh Anand M.D. on 02/24/2017 at 14:08 Approved by: Umesh Anand M.D. on 02/24/2017 at 14:12 Date of Service: 02/24/17 1403 PROCEDURE: CT ANGIO HEAD AND NECK (P) IMPRESSION: 1. No hemodynamically significant lesions of the central intracranial vasculature. 2. No hemodynamically significant lesions of the extracranial neck vasculature. Dictated by: Umesh Anand M.D. on 02/24/2017 at 15:48 Approved by: Umesh Anand M.D. on 02/24/2017 at 15:59 Date of Service: 02/25/17 0800 PROCEDURE: MRI BRAIN WITHOUT CONTRAST ([id number]) IMPRESSION: 1. Punctate cortical focus of restricted diffusion consistent with a late acute to early subacute infarct. No evidence of hemorrhagic conversion. 2. Mild cerebral volume loss. 3. Left mastoiditis and sinus mucosal disease within the ethmoid, maxillary, and sphenoid sinuses. Dictated by: Joe Vila M.D. on 02/25/2017 at 10:39 Approved by: Joe Vila M.D. on 02/25/2017 at 10:39 ECG [address] elevation/depression Cardiac Echo Impression [facility] Diagnostic [place] [address] Patient Name: ESE DOMINGUEZ MR#: [id number] [place] [facility] [place] Phys: Misael Smith MD Date of Service: 02/25/17 0800 [facility] [address] [place] [address] Echocardiogram Report Name: ESE DOMINGUEZ FStudy Date: 02/25/2017 Height: 71 in Hospital Exam Location: [facility] [place] Weight: 250 lb Gender: Male BSA: 2.3 m2 : 1950 Age: 66 yrs BP: 151/69 mmHg Reason For Study: TIA Ordering Physician: HOSPITALIST SVHPerformed By: Nathan Burks Referring Physician: Ally Crandall Interpretation Summary 1. The left ventricle is mildly dilated with upper limits of normal wall thickness and normal systolic function with an estimated EF of 50-55% 2. Normal right ventricular size and systolic function. 3. Mild aortic insufficiency 4. Dilated ascending aorta (stable in size compared to the previous study in 2016) Compared to the previous study, the left ventricle appears slightly more dilated; systolic function is stable. The left atrium is also more dilated. Procedure: A two-dimensional transthoracic echocardiogram with color flow and Doppler was performed. The study quality was technically adequate. Comparison is made with the echocardiogram of 09/29/16. The patient was in normal sinus rhythm during the exam. Left Ventricle: The left ventricle is mildly dilated. Left ventricular wall thickness is at the upper limits of normal. The ejection fraction is estimated to be 50-55%. Septal motion is consistent with conduction abnormality. Right Ventricle: The right ventricle is normal in size and function. Atria: The left atrium is severely dilated. Right atrial size is normal. No color doppler evidence for an ASD. Mitral Valve: The mitral valve is normal in structure and function. There is trace mitral regurgitation. Aortic Valve: The aortic valve is trileaflet. The aortic valve opens well. There is mild aortic regurgitation. Tricuspid Valve: The tricuspid valve is normal in structure and function. There is mild tricuspid regurgitation. The right ventricular systolic pressure is estimated at 24 mmHg assuming a right atrial pressure of 3 mm Hg. Pulmonic Valve: The pulmonic valve is normal in structure and function. There is trace pulmonic regurgitation. Great Vessels: The aortic root is normal size. The ascending aorta is moderately enlarged. This is unchanged compared to the previous study. The diameter of the ascending aorta is 4.3 cm. The IVC is of normal diameter and collapses greater than 50% with a sniff. This suggests a low right atrial pressure of 3 mm Hg. Pericardium/ Pleura There is no pericardial effusion. There is no pleural effusion. MMode/2D Measurements & Calculations LVIDd: 6.3 cm LA dimension: 4.4 cm RA long axis: 5.0 cm LVOT diam LVIDs: 3.8 cm FS: 40.2 % LA A2 area: 31.6 cm RA area: 20.8 cm Ao root diam EPSS: 0.94 cm LA A4 area: 30.0 cm RA vol: 73.1 ml IVSd: 1.1 cm LA length (vol): 6.8 cm RA : 31.5 ml/m2 Aortic Jxn LVPWd: 1.1 cm LA vol: 119.1 ml asc Aorta LA vol index: 51.4 ml/m Diam: 4.3 cm IVC diam: 1.9 cm EDV(MOD-sp2) LV smart. diameter/BSA LV sys. diameter/BSA : 106.3 ml (cm/m^2): 2.7 (cm/m^2): 1.6 Doppler Measurements & Calculations Ao V2 max MV E max juan MV E/A: 0.77 TR max juan : 154.6 cm/sec : 60.5 cm/sec Med Peak E' Juan : 229.4 cm/sec Ao max PG MV A max juan TR max P.1 mmHg : 9.6 mmHg : 78.4 cm/sec E/E' med: 15.8 PA V2 max: 95.8 cm/sec Ao mean PG Pulm A Revs Dur PA mean P.2 mmHg : 5.9 mmHg PA Accel Time: 0.14 sec MV A dur: 0.12 sec MV dec time Ao V2 mean PA V2 mean Pulm A Revs Dur - MV A : 0.19 sec : 115.8 cm/sec : 72.2 cm/sec Dur: -0.03 msec Ao V2 VTI PA pr(Accel) : 34.7 cm : 21.6 mmHg Reading Physician:01:41 PM Brief History 66 year old male with distant history of CVA six years ago and residual left elbow numbness since then as well as history of hypertension and diabetes presents with acute episode of left upper extremity numbness (affecting the left hand to left shoulder) as well as some "clumsiness" and weakness of his left hand that began around noon time today as he was watching TV. He note that after waiting for about 15 minutes and not noticing any resolution he took 3 baby aspirins and after about 30 minutes had almost complete resolution of the new numbness and significant improvement in the left hand weakness/ clumsiness although not completely resolved yet. He also reports an associated frontal headache today that has now almost completely resolved as well. He otherwise denies any other associated symptoms such as lightheadedness, dizziness, change in vision, nausea, vomiting, fever or chills. Hospital Course 66 year old male with distant history of CVA six years ago and residual left elbow numbness since then as well as history of hypertension and diabetes presents with acute episode of left upper extremity numbness (affecting the left hand to left shoulder) as well as some "clumsiness" and weakness of his left hand. MRI on 02/25/17 showed right punctate cortical focus of restricted diffusion. Now he is being treated for stroke. Acute Disgnoses: # CVA (R frontal lobe) POA -Acute left upper extremity numbness/weakness. present on admission. improving - MRI 02/25/17 showing: "Punctate cortical focus of restricted diffusion consistent with a late acute to early subacute infarct" but clinical presentation is more suggestive of acute CVA/infarct - US eCho on showed EF 50-55%, Stable dilated scending aorta, slightly mote dialted LV than before. - Telemonitoring - Fasting Lipids: Patient is currently on 10 mg Atorvastatin. -- It is not fully clear if this will constitute an Aspirin "failure" because patient admits today that he had not been strict on taking an ASA daily and that he was missing doses every now and then. Plavix is given in stead of aSA. Patient had recurrent episodes of infarct in the same area of the brain over the past several years. - PT/OT eval -- Consulted Dr. Ross, neurologist at [facility] [place]. She reviewed the scans feels bad his left arm symptoms. R due to his new stroke. She recommends continuing Plavix, a DARSHAN to rule out cardio embolic etiologies as his transthoracic echo was negative. She also recommended a 4 week heart monitor. We appreciate their recommendations. Cardiology is contacted and they recommended giving a 30 day monitor to patient at discharge continue Plavix. -- On the day of discharge, patient is eating well and ambulating well. His strength in upper extremities is back to baseline. # Hypertension. stable - permissive hypertension initially, gradual restart of home antihypertensives # Type 2 diabetes.: - hold home metformin: Patient may restart metformin at discharge - cover with sliding scale insulin - OmR6L=0.0 # Obstructive sleep apnea - CPAP at home setting Exam Vital Signs (Last) Date Time Temp Pulse Resp B/P Pulse Ox O2 Delivery O2 Flow Rate FiO2 02/27/17 12:49 36.7 61 18 168/91 97 Room Air Exam Gen.: Neck no acute distress , hard of hearing Eyes: [place] conjunctivae. 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 No rash, lesions or ulcers Psych: A&O X3, with approprate affect neuro: Finger to nose WNL. Babinski slight withdrawl. patellar reflexes equal and symmetric, CN II-XII grossly normal Vascular: Negative for carotid bruits MSK equal and symmetric in hands Test 02/24/17 14:10 02/24/17 14:15 02/26/17 05:40 02/26/17 05:44 Prothrombin Time 10.3sec (8.1-12.5) Prothromb Time International Ratio 0.96ratio Activated Partial Thromboplast Time 25.7sec (22.8-33.0) Hemoglobin A1c 7.0% (4.8-5.6) Total Bilirubin 0.3mg/dL (0.0-1.2) Aspartate Amino Transf (AST/SGOT) 14U/L (0-50) Alanine Aminotransferase (ALT/SGPT) 13U/L (0-44) Alkaline Phosphatase 74U/L (25-160) Total Protein 6.6g/dL (6.4-8.4) Albumin 4.0g/dL (3.4-5.0) Hold [place] Top Tube Received (Received) Urine Color Yellow (YELLOW) Urine Appearance Clear (CLEAR,HAZY) Urine pH 5.0 (5.0-8.0) Urine Specific [place] 1.025 (1.003-1.035) Urine Protein Negativemg/dL (NEG,TRACE) Urine Glucose (UA) Negativemg/dL (NEGATIVE) Urine Ketones Negativemg/dL (NEGATIVE) Urine Occult Blood Negative (NEGATIVE) Urine Nitrite Negative (NEGATIVE) Urine Bilirubin Negative (NEGATIVE) Urine Urobilinogen Normalmg/dL (NORMAL) Urine Leukocyte Esterase Negative (NEGATIVE) Urine RBC 0-2/hpf (0-2) Urine WBC 0-5/hpf (0-5) Urine Epithelial Cells Moderate/hpf (NONE-MOD) Urine Crystals None seen (NONE SEEN) Urine Bacteria None/hpf (NONE-FEW) Urine Hyaline Casts None/lpf (NONE) Urine Granular Casts None seen (NONE SEEN) Urine Waxy Casts None seen (NONE SEEN) Urine Red Blood Cell Casts None seen (NONE SEEN) Urine White Blood Cell Casts None seen (NONE SEEN) Urine Mucus None seen (None Seen) Urine Trichomonas None seen (NONE SEEN) Urine Yeast None (NONE SEEN) Urinalysis Comment None Urine Culture Reflexed Not indicated Triglycerides Level 230mg/dL (0-149) Cholesterol Level 195mg/dL (100-199) LDL Cholesterol, Calculated 105.000mg/dL (0-99) VLDL Cholesterol 46.000mg/dL HDL Cholesterol 44mg/dL (>39) Cholesterol/HDL Ratio 4.43 (0.0-4.4) Troponin T < 0.010ug/L (0.0-0.011) Test 02/27/17 05:30 White Blood Count 6.9th/mm3 (3.8-10.1) Red Blood Count 4.39mil/mm3 (4.40-5.80) Hemoglobin 14.5g/dL (13.8-17.2) Hematocrit 42.2% (41.0-50.0) Mean Corpuscular Volume 96.1fL (81-100) Mean Corpuscular Hemoglobin 33.0pg (27.0-35.0) Mean Corpuscular Hemoglobin Concent 34.4% (32.0-37.0) Red Cell Distribution Width 13.2% (12.3-15.4) Platelet Count 279bil/L (150-400) Neutrophils (%) (Auto) 60.6% (40-74) Lymphocytes (%) (Auto) 24.5% (14-46) Monocytes (%) (Auto) 10.7% (4-12) Eosinophils (%) (Auto) 2.6% (0-5) Basophils (%) (Auto) 0.4% (0-3) Sodium Level 142mEq/L (134-144) Potassium Level 4.3mEq/L (3.5-5.2) Chloride Level 103mEq/L (97-108) Carbon Dioxide Level 22mmol/L (18-29) Blood Urea Nitrogen 16mg/dL (8-27) Creatinine 1.21mg/dL (0.76-1.27) Estimat Glomerular Filtration Rate 64mL/min (>59) Glucose Level 152mg/dL (60-99) Calcium Level 9.4mg/dL (8.5-10.1) Discharge Medications Discharge Medications Amoxicillin/Clav K 875-125 mg (Amoxicillin/Clav K 875-125 mg) 875 Mg Tab 1 TAB PO BID Prescribed by: SHERRY MARIANO DO Atenolol (Atenolol) 25 Mg Tablet 25 MG PO QPM (Reported) Clopidogrel (Clopidogrel) 75 Mg Tablet 75 MG PO DAILY Prescribed by: SHERRY MARIANO DO Felodipine ER (Felodipine ER) 5 Mg Tab.er.24h 5 MG PO QAM (Reported) Fluoxetine (Fluoxetine) 20 Mg Capsule 20 MG PO DAILY (Reported) Fluticasone Propionate (Fluticasone Propionate Nasal) 16 Gm [employer].susp 1 SPRAY NS DAILY (Reported) Lovastatin (Lovastatin) 40 Mg Tablet 40 MG PO HS (Reported) Lovastatin (Lovastatin) 20 Mg Tablet 20 MG PO HS Prescribed by: SHERRY MARIANO DO Metformin ER (Metformin ER) 1,000 Mg Tablet 1,000 MG PO BID (Reported) morning and evening meals Tamsulosin ER (Tamsulosin ER) 0.4 Mg Cap.er.24h 0.4 MG PO DAILY (Reported) Terbinafine (Terbinafine) 250 Mg Tablet 250 MG PO DAILY (Reported) As needed Clonazepam (Clonazepam) 0.5 Mg Tablet 0.5 MG PO BID PRN PRN For Anxiety ( Reported) Followup Plan Follow-up plan Please follow up with your PCP in one week. Please f/u with neurology at [facility] [place], Dr. Ross [phone] Discharge Diet: Heart Healthy, Diabetic Discharge Activity: No restrictions Patient Instructions Please take Plavix in stead of aspirin. Please wait for 3 days before restarting atenolol. Please increase your Lovastatin to 60 mg daily. PCP: Please set up patient with a 30 day heart monitor and refer to cardiology if there is a concern. Sherry Mariano DO Mar 05, 2017 15:08
== END 2017-02-27 14:59 | disposition home or self-care (01) | DRG 65 ==
LOC: SED 13:39 → OBSVTOIN 16:46 → MPC 16:46
PROVIDERS: ADMIT Internal Medicine; ATTEND Internal Medicine
DX: I63.9 Cerebral infarction, unspecified (principal); I69.354 Hemiplegia and hemiparesis following cerebral infarction affecting left non-dominant side; I10 Essential (primary) hypertension; E11.9 Type 2 diabetes mellitus without complications; G47.33 Obstructive sleep apnea (adult) (pediatric); R07.9 Chest pain, unspecified; F41.9 Anxiety disorder, unspecified; H70.92 Unspecified mastoiditis, left ear; Z79.82 Long term (current) use of aspirin; R40.2362 Coma scale, best motor response, obeys commands, at arrival to emergency department; R40.2252 Coma scale, best verbal response, oriented, at arrival to emergency department; R40.2142 Coma scale, eyes open, spontaneous, at arrival to emergency department